=== PATIENT | male | born 1955 | race African-American/Black ===

== ENCOUNTER 2017-01-20 07:07 | Day surgery (SDC) | payer OTHER ==
[2017-01-16 10:14] LABS: BASOPHILS 0.6 %; BASOPHILS ABSOLUTE 0.06 10/3/uL (0.0-0.16); EOSINOPHILS 4.5 %; EOSINOPHILS ABSOLUTE 0.47 10/3/uL (0.0-0.53); HEMATOCRIT 44.2 % (40.0-51.0); HEMOGLOBIN 15.2 g/dL (13.6-17.8); IMMATURE GRANULOCYTES 0.3 %; IMMATURE GRANULOCYTES ABSOLUTE 0.03 10/3/uL (0.0-0.11); LYMPHOCYTES ABSOLUTE 3.27 10/3/uL (0.67-4.30); MEAN CORPUS HGB CONC 34.4 g/dL (32.0-36.0); MEAN CORPUSCULAR HEMOGLOB 28.8 pg (26.0-34.0); MEAN CORPUSCULAR VOLUME 83.7 fL (80-100); MEAN PLATELET VOLUME 10.2 fL (9.2-13.0); MONOCYTES 12.1 %; MONOCYTES ABSOLUTE 1.28 10/3/uL (0.21-1.20); NEUTROPHILS 51.5 %; NEUTROPHILS ABSOLUTE 5.43 10/3/uL (2.02-8.40); PLATELET COUNT 320 10/3/uL (150-400); RBC DISTRIBUTION WIDTH 15.5 % (12.0-16.0); RED CELL COUNT 5.28 10/6/uL (4.7-6.1); WHITE BLOOD CELLS 10.5 10/3/uL (4.5-10.5)
[2017-01-16 10:15] LABS: MANUAL DIFF NO %
[2017-01-16 10:28] LABS: BUN (BLOOD UREA NITROGEN) 14 MG/DL (6-23); CALCIUM, SERUM 9.4 MG/DL (8.5-10.4); CHLORIDE, SERUM 107 MMOL/L (96-112); CREATININE 0.82 MG/DL (0.70-1.30); GFR AFRICAN AMERICAN 111 ML/MIN (>=60); GFR NON AFRICAN AMERICAN 96 ML/MIN (>=60); GLUCOSE, SERUM 110 MG/DL (60-99); POTASSIUM, SERUM 4.1 MMOL/L (3.5-5.3); SODIUM, SERUM 141 MMOL/L (135-148)
[2017-01-16 10:29] LABS: CO2 (CARBON DIOXIDE) 27 MMOL/L (24-34)
--- NOTE | ~2017-01-20 | OP ---
Record Of Operation [facility] [address] [place]. [address] NAME: FRANCES SILVA : 57 STATUS : [facility]#: [id number] AGE: 61 ADM/REG DATE : 01/20/17 MR#: [id number] REPORT SERV DATE: 01/28/17 DICTATED BY: TATO MCNAMARA DATE: 01/28/17 REPORT STATUS : Draft TRANSCRIBED BY: MODL DATE: 01/28/17 DATE OF PROCEDURE: 01/20/2017 PREPROCEDURE DIAGNOSIS: Severe bilateral lower extremity claudication. POSTOPERATIVE DIAGNOSES: 1. Right external iliac artery high-grade obstruction. 2. Left SFA popliteal artery occlusion. PROCEDURE PERFORMED: 1. Aortogram with bilateral lower extremity runoff. 2. Right external iliac artery angioplasty stent 8 x 80 stent with 7 x 8 angioplasty. 3. Atherectomy left SFA with 2.4 Liberty with secondary angioplasty 6 x 300 and stent 6 x 150 x2. 4. Embolectomy left popliteal and left TP trunk. SURGEON: Tato Mcnamara M.D. ANESTHESIA: Local MAC. COMPLICATIONS: Embolization to the left popliteal controlled. DETAILS OF PROCEDURE: The patient was brought to the endovascular operating room, placed in supine position, prepped and draped in a routine sterile fashion to the bilateral groin. The right femoral artery was interrogated with ultrasound and found to be compressible. A needle was passed into this artery under ultrasound vision. A picture was then taken and placed on the chart. Next, a wire was passed into the aorta. A sheath was then placed. An iliac artery angiogram was performed on the right showing evidence of a high-grade multilevel obstructive process. Secondary to this, a stent was indicated, but before I did this, I performed aortogram and left leg runoff. This aortogram showed widely patent iliac arteries bilaterally. The catheter was then advanced from the right side to the left femoral. Arteriogram demonstrated wide patency of the common femoral. The proximal superficial femoral artery was then catheterized and this was found to be patent and then I constructed shortly thereafter all the way to the knee level. The wire and catheter were then advanced down to the knee level. There was a stent noted distally and then atherectomy was then performed with the Liberty 2.4 catheter at the proximal mid SFA and the stent. Angioplasty was performed with a 6 x 200 balloon, which dramatically opened the vessel. There was dissection above the level of the stent. Two additional stents were indicated 6 x 150 were placed. At this point, the entire SFA was reconstructed, excellent flow was noted. There was some distal debris at the popliteal level, which was retrieved by a filter which was placed and removed the embolus. The TP trunk was also visualized and also had a small embolus that was captured by the filter. Flow was significantly improved into the lower extremity. Wires, catheters, and sheaths were then pulled back to the right side. Distal arteriogram of the external carotid was then performed and this showed the high-grade iliac lesion and 8 x 80 stent was passed in position and deployed across this area and a 7 x 8 balloon performed angioplasty opening this area widely. At this point, the proximal SFA was Record Of Operation [address] [place]. [address] NAME: FRANCES SILVA : 57 STATUS : [facility] PAT#: [id number] AGE: 61 ADM/REG DATE : 01/20/17 MR#: [id number] REPORT SERV DATE: 01/28/17 DICTATED BY: TATO MCNAMARA DATE: 01/28/17 REPORT STATUS : Draft TRANSCRIBED BY: MODL DATE: 01/28/17 then closed with an Angio-Seal. The patient tolerated the procedure well. CL/TABATHA Tato Mcnamara M.D. / [id number] CC: Tato Mcnamara M.D.
[~2017-01-20 07:07] MED LIST: ADVIL PO; APRES50 PO; ASA5GR PO; ASABAYER PO; CARD60 PO; CAT1 PO; COREG12 PO; COREG25 PO; DIGITEK0.25 MG PO; FLEXERIL5 MG PO; FLU PO; HYDRALAZINE100 MG PO; HYDROCHLOROT12.5 MG PO; HYDROCHLOROT25 MG PO; ISORDIL20 PO; LEVAQUIN750 MG PO; LIPITOR20 PO; LOP25 PO; NEUR300 PO; NORV10 PO; PCET PO; PRADAXA150 MG PO; PRIN20 PO; SPIRO25 PO; TESS PO; TRAZ50 PO; ULTRAM50 PO; VENTOLIN HFA INH; VISINE0.05 % OPH; ZOL100 PO; ZYRTEC ALLGY10 MG PO; [UNRECOGNIZED DRUG - OTHER] PO
[2017-01-20] MEDS ORDERED: L40 PO (16:27)
[2017-01-20] MEDS ORDERED: PLAVIX PO (16:31)
== END 2017-01-20 18:30 | disposition home or self-care (01) ==
LOC: SDC 07:07 → SSU1 14:36
PROVIDERS: Specialist
PROC: B410ZZZ Fluoroscopy of Abdominal Aorta (ICD-10-PCS; principal; 2017-01-20 10:00)
PROC: B41GZZZ Fluoroscopy of Left Lower Extremity Arteries (ICD-10-PCS; 2017-01-20 10:00)
PROC: B41FZZZ Fluoroscopy of Right Lower Extremity Arteries (ICD-10-PCS; 2017-01-20 10:00)
PROC: 047H3ZZ Dilation of Right External Iliac Artery, Percutaneous Approach (ICD-10-PCS; 2017-01-20 10:00)
PROC: 04CL3ZZ Extirpation of Matter from Left Femoral Artery, Percutaneous Approach (ICD-10-PCS; 2017-01-20 10:00)
DX: I70.213 Atherosclerosis of native arteries of extremities with intermittent claudication, bilateral legs (principal); I10 Essential (primary) hypertension; I25.2 Old myocardial infarction; E78.00 Pure hypercholesterolemia, unspecified; J44.9 Chronic obstructive pulmonary disease, unspecified; F41.9 Anxiety disorder, unspecified; F32.9 Major depressive disorder, single episode, unspecified; F17.210 Nicotine dependence, cigarettes, uncomplicated; G62.9 Polyneuropathy, unspecified; M19.90 Unspecified osteoarthritis, unspecified site; N42.9 Disorder of prostate, unspecified; K64.9 Unspecified hemorrhoids; Z79.82 Long term (current) use of aspirin; Z79.899 Other long term (current) drug therapy; Z98.890 Other specified postprocedural states
CPT/HCPCS: 37184; 37185; 37227; 71020; 75625; 75710; 76937; 80048; 85025; 93005; A9270-GY; C1725; C1760; C1769; C1876; C1884; C1894; J0330; Q9966